=== PATIENT | male | born 1940 | race Caucasian/White ===

== ENCOUNTER 2020-09-11 22:26 | Emergency (ER) | payer MEDICARE, BC ==
[~2020-09-11] VITALS: Ht 172.7 cm; Wt 82.5 kg
[2020-09-11 23:22] LABS: BASOPHILS # (AUTO) 0.1 X10'3 (0-0.2); BASOPHILS % (AUTO) 1.4 % (0-1); EOSINOPHILS # (AUTO) 0.6 X10'3 (0-0.9); EOSINOPHILS % (AUTO) 9.3 % (0-6); HEMATOCRIT 39.8 % (42.0-52.0); LYMPHOCYTES # (AUTO) 1.1 X10'3 (1.1-4.8); LYMPHOCYTES % (AUTO) 17.6 % (21-51); MEAN CORPUSCULAR HEMOGLOBIN 32.1 PG (27.0-31.0); MEAN CORPUSCULAR HGB CONC 32.7 g/dL (33.0-36.5); MEAN CORPUSCULAR VOLUME 98.2 FL (78-98); MEAN PLATELET VOLUME 7.3 FL (7.4-10.4); MONOCYTES # (AUTO) 0.8 X10'3 (0-0.9); MONOCYTES % (AUTO) 12.2 % (2-12); NEUTROPHILS # (AUTO) 3.7 X10'3 (1.8-7.7); NEUTROPHILS % (AUTO) 59.5 % (42-75); PLATELET COUNT 216 X10'3 (140-440); RED BLOOD COUNT 4.05 X10'6 (4.70-6.10); RED CELL DISTRIBUTION WIDTH 13.9 % (11.5-14.5); WHITE BLOOD COUNT 6.3 X10'3 (4.5-11.0)
[2020-09-11 23:23] LABS: ALANINE AMINOTRANSFERASE 28 U/L (12-78); ALBUMIN 3.6 G/DL (3.4-5.0); ALBUMIN/GLOBULIN RATIO 1.2 (1.1-1.5); ALKALINE PHOSPHATASE 68 IU/L (46-116); ANION GAP 6 (8-16); ASPARTATE AMINO TRANSFERASE 26 U/L (10-37); BILIRUBIN,TOTAL 0.3 MG/DL (0.1-1.0); BLOOD UREA NITROGEN 18 MG/DL (7-18); BUN/CREATININE RATIO 17.3 (5.4-32.0); CALCIUM 9.8 MG/DL (8.5-10.1); CHLORIDE 108 MMOL/L (99-107); CREATININE 1.04 MG/DL (0.60-1.10); GLUCOSE 126 MG/DL (70-104); POTASSIUM 4.1 MMOL/L (3.5-5.1); SODIUM 146 MMOL/L (135-145); TOTAL CARBON DIOXIDE 32.2 MMOL/L (24-32); TOTAL PROTEIN 6.7 G/DL (6.4-8.2); eGFR 69 ML/MIN
[2020-09-11 23:32] LABS: LIPASE 101 U/L (73-393)
[2020-09-12 00:03] VITALS: BP 125/70
== END 2020-09-12 00:07 | disposition home or self-care (01) ==
LOC: ER 22:26
DX: R10.84 Generalized abdominal pain (principal); R42 Dizziness and giddiness; R53.83 Other fatigue; R06.02 Shortness of breath; I50.9 Heart failure, unspecified; J44.9 Chronic obstructive pulmonary disease, unspecified; Z90.89 Acquired absence of other organs; Z95.0 Presence of cardiac pacemaker; Z98.890 Other specified postprocedural states; Z88.5 Allergy status to narcotic agent
CPT/HCPCS: 36415; 71045; 80053; 83690; 83880; 84484; 85025; 93005; 99285

== ENCOUNTER 2020-09-24 14:53 | Emergency (ER) | payer MEDICARE, BC ==
[~2020-09-24] VITALS: Ht 170.2 cm; Wt 76.4 kg
[2020-09-24 15:30] LABS: BASOPHILS # (AUTO) 0.1 X10'3 (0-0.2); BASOPHILS % (AUTO) 0.9 % (0-1); EOSINOPHILS # (AUTO) 0.3 X10'3 (0-0.9); EOSINOPHILS % (AUTO) 4.7 % (0-6); HEMATOCRIT 41.7 % (42.0-52.0); HEMOGLOBIN 13.6 g/dl (14.0-17.9); LYMPHOCYTES # (AUTO) 0.8 X10'3 (1.1-4.8); LYMPHOCYTES % (AUTO) 12.8 % (21-51); MEAN CORPUSCULAR HEMOGLOBIN 31.9 PG (27.0-31.0); MEAN CORPUSCULAR HGB CONC 32.7 g/dL (33.0-36.5); MEAN CORPUSCULAR VOLUME 97.7 FL (78-98); MEAN PLATELET VOLUME 7.1 FL (7.4-10.4); MONOCYTES # (AUTO) 0.6 X10'3 (0-0.9); MONOCYTES % (AUTO) 8.9 % (2-12); NEUTROPHILS # (AUTO) 4.6 X10'3 (1.8-7.7); NEUTROPHILS % (AUTO) 72.7 % (42-75); PLATELET COUNT 220 X10'3 (140-440); RED BLOOD COUNT 4.27 X10'6 (4.70-6.10); RED CELL DISTRIBUTION WIDTH 13.8 % (11.5-14.5); WHITE BLOOD COUNT 6.3 X10'3 (4.5-11.0)
[2020-09-24 15:51] LABS: ALANINE AMINOTRANSFERASE 24 U/L (12-78); ALBUMIN 3.8 G/DL (3.4-5.0); ALBUMIN/GLOBULIN RATIO 1.2 (1.1-1.5); ALKALINE PHOSPHATASE 70 IU/L (46-116); ANION GAP 7 (8-16); ASPARTATE AMINO TRANSFERASE 23 U/L (10-37); BILIRUBIN,TOTAL 0.5 MG/DL (0.1-1.0); BLOOD UREA NITROGEN 14 MG/DL (7-18); BUN/CREATININE RATIO 14.9 (5.4-32.0); CALCIUM 9.1 MG/DL (8.5-10.1); CHLORIDE 106 MMOL/L (99-107); CREATININE 0.94 MG/DL (0.60-1.10); GLUCOSE 103 MG/DL (70-104); SODIUM 143 MMOL/L (135-145); TOTAL CARBON DIOXIDE 29.8 MMOL/L (24-32); TOTAL PROTEIN 7.1 G/DL (6.4-8.2); eGFR 77 ML/MIN
[2020-09-24] MEDS ORDERED: FURO20TA4 PO (17:32)
[2020-09-24] MEDS ORDERED: MONT10TA32 PO (17:32)
[2020-09-24] MEDS ORDERED: POTA8TAB58 PO (17:32)
[2020-09-24] MEDS ORDERED: ADV50250 PO (17:32)
[2020-09-24] MEDS ORDERED: FINA1TAB PO (17:32)
[2020-09-24 19:35] VITALS: BP 144/92
== END 2020-09-24 20:01 | disposition home or self-care (01) ==
LOC: ER 14:53
DX: R07.89 Other chest pain (principal); R42 Dizziness and giddiness; R11.0 Nausea; R06.02 Shortness of breath; J44.9 Chronic obstructive pulmonary disease, unspecified; I50.9 Heart failure, unspecified; F17.200 Nicotine dependence, unspecified, uncomplicated; Z90.89 Acquired absence of other organs; Z95.0 Presence of cardiac pacemaker; Z88.5 Allergy status to narcotic agent; Z79.899 Other long term (current) drug therapy
CPT/HCPCS: 36415; 71045; 80053; 83880; 84484; 85025; 93005; 99285

== ENCOUNTER 2020-12-12 11:42 | Emergency (ER) | payer MEDICARE, BC ==
[~2020-12-12] VITALS: Ht 172.7 cm; Wt 76.4 kg
[~2020-12-12 11:42] MED LIST: ADV50250 PO; FINA1TAB PO; FURO20TA4 PO; MONT10TA32 PO; POTA8TAB58 PO
[2020-12-12 12:55] LABS: BASOPHILS # (AUTO) 0.1 X10'3 (0-0.2); BASOPHILS % (AUTO) 1.9 % (0-1); EOSINOPHILS # (AUTO) 0.4 X10'3 (0-0.9); EOSINOPHILS % (AUTO) 6.7 % (0-6); HEMATOCRIT 39.8 % (42.0-52.0); HEMOGLOBIN 13.3 g/dl (14.0-17.9); LYMPHOCYTES # (AUTO) 0.8 X10'3 (1.1-4.8); LYMPHOCYTES % (AUTO) 12.7 % (21-51); MEAN CORPUSCULAR HEMOGLOBIN 32.7 PG (27.0-31.0); MEAN CORPUSCULAR HGB CONC 33.4 g/dL (33.0-36.5); MEAN CORPUSCULAR VOLUME 97.9 FL (78-98); MEAN PLATELET VOLUME 7.3 FL (7.4-10.4); MONOCYTES # (AUTO) 0.9 X10'3 (0-0.9); MONOCYTES % (AUTO) 13.1 % (2-12); NEUTROPHILS # (AUTO) 4.3 X10'3 (1.8-7.7); NEUTROPHILS % (AUTO) 65.6 % (42-75); PLATELET COUNT 232 X10'3 (140-440); RED BLOOD COUNT 4.07 X10'6 (4.70-6.10); RED CELL DISTRIBUTION WIDTH 14.9 % (11.5-14.5); WHITE BLOOD COUNT 6.6 X10'3 (4.5-11.0)
[2020-12-12 13:12] LABS: ALANINE AMINOTRANSFERASE 29 U/L (12-78); ALBUMIN 3.6 G/DL (3.4-5.0); ALKALINE PHOSPHATASE 74 IU/L (46-116); ANION GAP 4 (8-16); ASPARTATE AMINO TRANSFERASE 26 U/L (10-37); BILIRUBIN,TOTAL 0.7 MG/DL (0.1-1.0); BLOOD UREA NITROGEN 14 MG/DL (7-18); BUN/CREATININE RATIO 13.1 (5.4-32.0); CALCIUM 8.9 MG/DL (8.5-10.1); CHLORIDE 106 MMOL/L (99-107); CREATININE 1.07 MG/DL (0.60-1.10); GLUCOSE 103 MG/DL (70-104); SODIUM 140 MMOL/L (135-145); TOTAL CARBON DIOXIDE 30.3 MMOL/L (24-32); TOTAL PROTEIN 7.2 G/DL (6.4-8.2); eGFR 66 ML/MIN
[2020-12-12] MEDS ORDERED: ALBU18HF2 INH (16:43)
[2020-12-12] MEDS ORDERED: DOXY100C43 PO (16:43)
[2020-12-12] MEDS ORDERED: PRED20TA PO (16:43)
[2020-12-12] MEDS ORDERED: dexamethasone 4mg tablet PO ONE (16:45)
[2020-12-12] MEDS ORDERED: ipratropium/albuterol 3ml nebule NEB ONE (16:45)
[2020-12-12 17:52] VITALS: BP 124/71
== END 2020-12-12 17:54 | disposition home or self-care (01) ==
LOC: ER 11:43
DX: J02.9 Acute pharyngitis, unspecified (principal); R06.02 Shortness of breath; I50.9 Heart failure, unspecified; J44.9 Chronic obstructive pulmonary disease, unspecified; Z90.89 Acquired absence of other organs; Z95.0 Presence of cardiac pacemaker; Z98.890 Other specified postprocedural states; Z88.5 Allergy status to narcotic agent; Z79.2 Long term (current) use of antibiotics; Z79.899 Other long term (current) drug therapy
CPT/HCPCS: 36415; 71046; 80053; 83605; 83880; 84484; 85025; 87040; 93005; 94640; 94760; 99285

== ENCOUNTER 2023-03-25 14:32 | Outpatient (CLI) | payer MEDICARE, BC ==
[~2023-03-25 14:32] MED LIST changes: +ALBU18HF2 INH; +MONT-40 PO; -MONT10TA32 PO
== END 2023-03-25 23:59 | disposition home or self-care (01) ==
LOC: RAD 14:32
PROVIDERS: ATTEND Psychiatry & Neurology Neurology
DX: G23.1 Progressive supranuclear ophthalmoplegia [Steele-Richardson-Olszewski] (principal); G62.9 Polyneuropathy, unspecified; R47.01 Aphasia; R48.2 Apraxia; R13.12 Dysphagia, oropharyngeal phase; G31.9 Degenerative disease of nervous system, unspecified
CPT/HCPCS: 74230